=== PATIENT | male | born 1970 | race Caucasian/White ===

== ENCOUNTER 2020-08-04 16:10 | Outpatient (CLI) | payer BC, SELFPAY ==
--- NOTE | ~2020-08-04 | US_ITS ---
US abdomen complete EXAMINATION: US Abdomen Complete INDICATION: Abdominal pain PROCEDURE: Realtime High Resolution abdomen ultrasound. COMPARISON: No prior studies for comparison FINDINGS: Gallbladder within normal limits. No gallstones, pericholecystic fluid, gallbladder wall t hickening or biliary dilatation. Common bile duct measures 3 mm. Liver echotexture within normal limits without focal mass. Pancreas within normal limits. Pancreati c tail is obscured by bowel gas. Spleen contains calcified granulomas. Renal echotexture is within n ormal limits bilaterally without hydronephrosis, contour deforming mass or renal stone. Right kidney measures 11.2 cm. Left kidney measures 12.5 cm. Visualized aspects of the aorta and IVC are within normal limits. Portal vein is patent. No sonograph ic Valenzuela's sign indicated by the technologist. IMPRESSION: 1: Unremarkable abdominal ultrasound. Reviewed, dictated and finalized at location A. [employer]
== END 2020-08-04 16:11 | disposition home or self-care (01) ==
PROVIDERS: PCP Internal Medicine; Visit Provider Internal Medicine
DX: R10.9 Unspecified abdominal pain (principal)
CPT/HCPCS: 76700

== ENCOUNTER 2021-03-30 11:56 | Outpatient (CLI) | payer OTHER, SELFPAY ==
--- NOTE | ~2021-03-30 | CT_ITS ---
EXAMINATION: CT abdomen pelvis w con DATE: 03/30/2021 12:25 INDICATION: Right lower quadrant abdominal pain TECHNIQUE: Computed tomography (CT) of the abdomen and pelvis was performed with 100 cc Omnipaque 350 intravenous contrast. Automated exposure control and iterative reconstruction technique were employe d. Exam dose: 547.50 mGy-cm total exam DLP. COMPARISON: August 04, 2020 complete abdominal ultrasound examination, reported unremarkable FINDINGS: The lung bases are clear of infiltrate or consolidation. Heart size is normal. No pericardi al or pleural effusion. Small sliding hiatal hernia. The gallbladder appears unremarkable. No bile duct or pancreatic duct dilatation. Multiple splenic calcified granulomas. The liver, spleen, pancreas, and adrenal glands and kidneys ar e otherwise unremarkable. No urinary tract calculus or hydroureteronephrosis. Normal caliber of the abdominal aorta. No intraperitoneal or retroperitoneal or pelvic mass lesion or adenopathy or ascites. Normal appendix. Diverticulosis of the colon; no CT evidence of diverticulitis. No bowel obstruction, bowel wall thickening, pneumatosis or intraperitoneal free air. Prostate enlargement. Mild thickening of the urinary bladder wall. IMPRESSION: Normal appendix Diverticulosis of the colon; no CT evidence of diverticulitis Reviewed, dictated and finalized at Location A. Reviewed, dictated and finalized at location B.
== END 2021-03-30 11:57 | disposition home or self-care (01) ==
PROVIDERS: PCP Internal Medicine; Visit Provider Internal Medicine
DX: R10.31 Right lower quadrant pain (principal); K57.30 Diverticulosis of large intestine without perforation or abscess without bleeding
CPT/HCPCS: 74177; Q9967

== ENCOUNTER 2021-07-30 07:23 | Outpatient (CLI) | payer OTHER, SELFPAY ==
[2021-07-30 08:26] LABS: Basophils Absolute Auto 0.1 K/mm3 (0.0-0.1); Basophils Percent Auto 0.8 % (0.2-1.2); Eosinophils Absolute Auto 0.3 K/mm3 (0-0.3); Eosinophils Percent Auto 3.9 % (0-4.4); Hematocrit 47.5 % (42.0-52.0); Hemoglobin 16.3 g/dL (14.0-18.0); Immature Granulocyte Absolute 0.02 K/mm3 (0.00-0.031); Immature Granulocyte Percent A 0.3 % (0-0.5); Lymphocytes Absolute Auto 3.77 K/mm3 (0.9-3.2); Lymphocytes Percent Auto 47.4 % (18.3-44.2); Mean Corpuscular HGB Conc 34.3 g/dl (32-36); Mean Corpuscular Hemoglobin 30.5 pg (26-34); Mean Corpuscular Volume 88.8 fl (80-100); Mean Platelet Volume 9.6 fl (7.4-10.4); Monocytes Absolute Auto 0.6 K/mm3 (0.1-0.6); Monocytes Percent Auto 7.3 % (2.6-8.5); Neutrophils Absolute Auto 3.2 K/mm3 (1.3-6.7); Neutrophils Percent Auto 40.3 % (45.5-73.1); Platelet Count Result 300 k/mm3 (150-375); Red Blood Count 5.35 M/mm3 (4.6-6.20); Red Cell Distribution Width 12.4 % (11.5-14.5)
[2021-07-30 08:40] LABS: Alanine Aminotransferase 35 U/L (4-50); Albumin Level 4.9 g/dL (3.5-5.1); Alkaline Phosphatase 42 U/L (38-126); Anion Gap 5 mmol/L (8-16); Aspartate Amino Transferase 34 U/L (17-59); Bilirubin,Total 0.9 mg/dL (0.2-1.3); Blood Urea Nitrogen 11 mg/dL (9-20); Calcium 9.9 mg/dL (8.4-10.2); Carbon Dioxide 29 mmol/L (22-30); Chloride 105 mmol/L (98-107); Cholesterol 258 mg/dL (0-200); Estimated Glomerular Filt Rate > 60; Glucose 98 mg/dL (65-110); HDL Direct 71 mg/dL; Potassium 3.8 mmol/L (3.4-5.0); Sodium 139 mmol/L (137-145); Triglycerides 135 mg/dL (<150)
[2021-07-30 08:41] LABS: Add Urine Microscopic? NO; Appearance Urine Clear (Clear); Bilirubin Urine Negative (Negative); Blood Urine Negative (Negative); Color Urine Yellow (Yellow); Glucose Urine UA Negative (Negative); Ketones Urine Negative (Negative); Leukocyte Esterase Ur Negative LEU/UL (NEGATIVE); Nitrate Urine Negative (Negative); Protein Urine Negative (Negative); Specific Grav Ur 1.014 (1.001-1.035); Urobilinogen Urine Negative mg/dL (<2.0)
[2021-07-30 08:50] LABS: LDL Cholesterol Direct 138 mg/dL
[2021-07-30 09:11] LABS: Prostate Specific Antigen 0.5 ng/mL (< OR = 4.0)
[2021-07-30 09:26] LABS: Vitamin D 25 Hydroxy 25.6 ng/mL
== END 2021-07-30 07:24 | disposition home or self-care (01) ==
PROVIDERS: PCP Internal Medicine; Visit Provider Internal Medicine
DX: Z00.00 Encounter for general adult medical examination without abnormal findings (principal); E55.9 Vitamin D deficiency, unspecified; E78.5 Hyperlipidemia, unspecified; Z12.5 Encounter for screening for malignant neoplasm of prostate; E78.2 Mixed hyperlipidemia
CPT/HCPCS: 36415; 80053; 80061; 81003; 82306; 84153; 84443; 85025; G0103

== ENCOUNTER → 2021-09-04 07:16 | Outpatient (CLI) | payer OTHER, SELFPAY ==
--- NOTE | ~2021-09-04 | XR_ITS ---
EXAMINATION: XR sternum min 2V INDICATION: Other chest pain TECHNIQUE: Two views of the sternum are obtained. COMPARISON: 07/15/2013 FINDINGS: No fracture is identified. There is no definite osseous abnormality of the sternum or church e when compared to prior chest radiograph. The soft tissues are unremarkable. The visualized lungs ar e clear. IMPRESSION: 1. No definite osseous abnormality of the sternum although sensitivity of radiographs is low. Conside r CT if there is high clinical suspicion for osseous abnormality. Reviewed, dictated and finalized at location D. TORCH BRAZIER IMPRESSION: 1. No definite osseous abnormality of the sternum although sensitivity of radio graphs is low. Consider CT if there is high clinical suspicion for osseous abno rmality.
== END ==
PROVIDERS: PCP Internal Medicine; Visit Provider Internal Medicine
DX: R07.89 Other chest pain (principal)
CPT/HCPCS: 71120

== ENCOUNTER 2021-09-12 00:28 | Day surgery (SDC) | payer OTHER, SELFPAY ==
[2021-09-03 14:13] VITALS: BMI 27.9
[2021-09-12 06:54] VITALS: BP 142/91; PULSE 51; RESP 18; TEMP 36.5; O2SAT 100
[2021-09-12] MEDS: LACTATED RINGERS 1,000 ML 150 ML IV CONT (07:11)
--- NOTE | 2021-09-12 07:17 | P.PNAN_ITS ---
Anes - Initial Pre Proc Eval Procedure: Operation Date: 09/12/21 08:00 Proposed Procedures p Screening Colonoscopy - Sherif Mora MD Date/Time: 09/12/21 07:17 Surgeon: Sherif Mora MD Pre Op Diagnosis: neoplasm screening Patient Data Age: 51 Gender: M Height: 1.78 m Weight: 91.3 kg Last Vital Signs Temp 36.5 C 09/12/21 06:54 Pulse 51 L 09/12/21 06:54 Resp 18 09/12/21 06:54 BP 142/91 H 09/12/21 06:54 Pulse Ox 100 09/12/21 06:54 Allergies Allergy/AdvReac Type Severity Reaction Status Date / Time No Known Allergies Allergy Verified 09/12/21 06:53 Home Medications Medication Instructions Recorded Confirmed Type cholecalciferol (vitamin D3) 10 mcg PO DAILY 09/03/21 09/03/21 History Patient hx anesthesia problems: none Family hx anesthesia problems: none Results Review: All pre-operative results and documents have been reviewed as part of the pre-operative evaluation. [facility] Past Medical History Medical History (Updated 09/12/21 @ 07:23 by Nick Holm MD) Overweight TMJ (temporomandibular joint disorder) Vasovagal syncope Surgical History Surgical History (Updated 09/12/21 @ 07:23 by Nick Holm MD) H/O hernia repair Family History Family History Father Family history of chronic obstructive pulmonary disease, Onset Age: 61 Family history of mental disorder, Onset Age: 61 Depression, Onset Age: 61 Family history of alcoholism, Onset Age: 61 Family history of lung disease, Onset Age: 61 Mother Diabetes mellitus Family history of obesity Family history of mental disorder Patient's mother is in good health Grandparent Family history of cardiovascular disease Family history of malignant neoplasm Social History Social History Smoking status: Never smoker Alcohol intake: current Drinks per week: 14 Alcohol use details: beer and wine Substance use: unknown Substance use type: does not use Living arrangements: with family Additional living arrangements comments: Liliana, spouse Spiritual care concerns: No Anes - Eval Final PreProcedure Day of Procedure 09/12/21 07:17 Patient weight: overweight Heart: bradycardia Lungs: clear to auscultation Airway: Mallampati scale class II, special considerations (HR 56 on exam) poor opening and other (TMJ syndome, clicking and popping improved in recent years) Neurological: alert and oriented Last oral intake: >/= 8 hours ASA classification: II Emergent: no Anesthetic plan: proceed Anesthesia type and monitoring: general GIVS and standard monitoring Results Review: All pre-operative results and documents have been reviewed as part of the pre-operative evaluation. Informed Consent: The patient's anesthetic plan and its attendant risks and benefits were discussed with the patient/family/POA. Questions were solicited and answers provided to the satisfaction of the patient/family/POA.
--- NOTE | 2021-09-12 07:47 | PM.HPGS ---
History of Present Illness History of Present Illness Consent: Risks, benefits, and alternatives have been discussed and questions answered. Patient agrees to proceed with procedure. Chief complaint: neoplasm screening Narrative: Brett Avalos is a 51 year old male here for first screening colonoscopy Review of Systems Constitutional: Constitutional: Denies headache(s) and Denies weakness Eyes: Eyes: Denies blurry vision ENT: Reports Normal hearing present, Denies headache(s) and Denies neck pain Cardiovascular: Cardiovascular: Denies chest pain and Denies dyspnea Respiratory: Respiratory: Denies dyspnea Gastrointestinal: Gastrointestinal: Reports no additional gastrointestinal complaints Genitourinary: Genitourinary: Denies dysuria Musculoskeletal: Musculoskeletal: Denies neck pain Integumentary/Breasts: Skin/Breast: Denies dry skin Neurologic: Reports Normal hearing present, Denies headache(s) and Denies weakness Psychiatric: Psychiatric: Denies anxiety Endocrine: Endocrine: Denies change in body appearance Hematologic/Lymphatic: Hematologic/Lymphatic: Denies easy bleeding Allergic/Immunologic: Allergic/Immunologic: Denies urticaria PMF Past Medical History Medical History (Updated 09/12/21 @ 07:23 by Nick Holm MD) Overweight TMJ (temporomandibular joint disorder) Vasovagal syncope Surgical History Surgical History (Updated 09/12/21 @ 07:23 by Nick Holm MD) H/O hernia repair Family History Family History Father Family history of chronic obstructive pulmonary disease, Onset Age: 61 Family history of mental disorder, Onset Age: 61 Depression, Onset Age: 61 Family history of alcoholism, Onset Age: 61 Family history of lung disease, Onset Age: 61 Mother Diabetes mellitus Family history of obesity Family history of mental disorder Patient's mother is in good health Grandparent Family history of cardiovascular disease Family history of malignant neoplasm Social History Social History Smoking status: Never smoker Alcohol intake: current Drinks per week: 14 Alcohol use details: beer and wine Substance use: unknown Substance use type: does not use Living arrangements: with family Additional living arrangements comments: Liliana, spouse Spiritual care concerns: No Meds Home Medications and Allergies Home Medications Medication Instructions Recorded Confirmed Type cholecalciferol (vitamin D3) 10 mcg PO DAILY 09/03/21 09/03/21 History Allergies Allergy/AdvReac Type Severity Reaction Status Date / Time No Known Allergies Allergy Verified 09/12/21 06:53 Vital Signs Vital Signs - 24 hr 09/12/21 06:54 Temperature 97.7 F Pulse Rate 51 L Respiratory Rate 18 Blood Pressure 142/91 H Pulse Oximetry 100 Exam Const: General: comfortable and no acute distress HENMT: General nose exam: Normal nares present Eyes: General: appearance normal, both eyes and all related structures Neck: Neck: no JVD Resp: Auscultation: clear to auscultation bilaterally Cardio: Rate: regular rate Rhythm: regular rhythm GI: Inspection: non-distended GI Palp: Yes Soft to palpation Skin: General skin exam: normal color Neuro: General: gait normal Speech: normal speech Extrem: General: normal to inspection Psych: Mental Status: mental status grossly normal Assessment and Plan Assessment and plan (1) Encounter for screening colonoscopy: Code(s): Z12.11 - Encounter for screening for malignant neoplasm of colon Status: Acute Assessment and Plan: colonoscopy
[2021-09-12 08:16] VITALS: BP 108/68; PULSE 57; RESP 16; O2SAT 99
[2021-09-12 08:26] VITALS: BP 116/86; PULSE 55; RESP 24; O2SAT 100
[2021-09-12 08:36] VITALS: BP 122/92; PULSE 53; RESP 18; O2SAT 100
== END 2021-09-12 08:59 | disposition home or self-care (01) ==
PROVIDERS: PCP Internal Medicine; Visit Provider Internal Medicine Gastroenterology
PROC: 0DJD8ZZ Inspection of Lower Intestinal Tract, Via Natural or Artificial Opening Endoscopic (ICD-10-PCS; CPT 45378; principal; 2021-09-12 08:00)
DX: Z12.11 Encounter for screening for malignant neoplasm of colon (principal); K57.30 Diverticulosis of large intestine without perforation or abscess without bleeding; K64.8 Other hemorrhoids
CPT/HCPCS: 45378; J2001; J2704; J7120

== ENCOUNTER → 2021-10-15 08:21 | Outpatient (CLI) | payer OTHER, SELFPAY ==
--- NOTE | ~2021-10-15 | CT_ITS ---
EXAMINATION:CT diagnostic chest wo con DATE: 10/15/2021 08:44 INDICATION: Osseous abnormality of sternum. Lump on sternum. TECHNIQUE: Computed tomography (CT) of the chest was performed without intravenous contrast. Automate d exposure control and iterative reconstruction technique were employed. The dose-length product (DLP ) was 383.76 mGy-cm. COMPARISON: Chest CT 07/15/2013, sternotomy radiographs 09/04/2021 FINDINGS: The lungs demonstrate mild atelectasis. A calcified right lung nodule and calcified right h ilar and mediastinal lymph nodes are consistent with old granulomatous disease. No pleural effusion. The heart size is normal. No pericardial effusion. Calcifications in the spleen are consistent with o ld granulomatous disease. There is mild thoracic spondylosis. The sternum is normal. There is a promi nent costosternal junction on the left. IMPRESSION: 1. Normal sternum with prominent costosternal junction on the left that may correlate with the patien t's palpable area of concern. Reviewed, dictated and finalized at location B. IMPRESSION: 1. Normal sternum with prominent costosternal junction on the left that may cor relate with the patient's palpable area of concern.
== END ==
PROVIDERS: PCP Internal Medicine; Visit Provider Internal Medicine
DX: R07.89 Other chest pain (principal)
CPT/HCPCS: 71250

== ENCOUNTER 2023-01-05 20:28 | Emergency (ER) | payer OTHER, SELFPAY ==
[2023-01-05] VITALS (7 sets, daily range): BP systolic 118–147; BP diastolic 83–96; PULSE 58–74; RESP 15–20; TEMP 36.6; O2SAT 100
--- NOTE | ~2023-01-05 | XR_ITS ---
EXAMINATION: XR chest 1V portable Exam Date/Time: 01/05/2023 20:42 CDT HISTORY: syncope Comparison: 03/22/2018; CT chest 10/15/2021. RESULT: Lines, tubes, and devices: None. Lungs and pleura: Clear. Calcified right lower lung granuloma. Cardiomediastinal silhouette: Stable. Calcified right hilar nodes. Other: No acute osseous or upper abdominal finding. IMPRESSION: No acute cardiopulmonary process. Reviewed, dictated and finalized at location K.
--- NOTE | 2023-01-05 20:29 | ECG_ITS ---
Measurements Intervals [place] Rate: 54 P: 71 TX: 177 QRS: 26 QRSD: 113 T: 18 QT: 403 QTc: 383 Interpretive Statements SINUS BRADYCARDIA INTRAVENTRICULAR CONDUCTION DELAY BORDERLINE ECG NO PREVIOUS ECG AVAILABLE FOR COMPARISON Electronically Signed On 01-06-2023 6:51:02 CDT by Alexander Merchant D.O.
[2023-01-05 20:55] LABS: Basophils Absolute Auto 0.1 K/mm3 (0.0-0.1); Basophils Percent Auto 0.5 % (0.2-1.2); Eosinophils Absolute Auto 0.2 K/mm3 (0-0.3); Eosinophils Percent Auto 1.2 % (0-4.4); Hemoglobin 15.8 g/dL (14.0-18.0); Immature Granulocyte Absolute 0.06 K/mm3 (0.00-0.031); Immature Granulocyte Percent A 0.5 % (0-0.5); Lymphocytes Absolute Auto 4.22 K/mm3 (0.9-3.2); Mean Corpuscular HGB Conc 34.3 g/dl (32-36); Mean Corpuscular Hemoglobin 30.6 pg (26-34); Mean Platelet Volume 9.4 fl (7.4-10.4); Monocytes Absolute Auto 1.1 K/mm3 (0.1-0.6); Neutrophils Absolute Auto 7.6 K/mm3 (1.3-6.7); Neutrophils Percent Auto 57.8 % (45.5-73.1); Platelet Count Result 287 k/mm3 (150-375); Red Blood Count 5.17 M/mm3 (4.6-6.20); Red Cell Distribution Width 12.5 % (11.5-14.5); White Blood Count 13.2 K/mm3 (4.5-10.0)
[2023-01-05 21:07] LABS: Alanine Aminotransferase 27 U/L (6-50); Albumin Level 4.9 g/dL (3.5-5.1); Alkaline Phosphatase 36 U/L (38-126); Anion Gap 7 mmol/L (8-16); Aspartate Amino Transferase 38 U/L (17-59); Bilirubin,Total 0.7 mg/dL (0.2-1.3); Blood Urea Nitrogen 23 mg/dL (9-20); Calcium 10.4 mg/dL (8.4-10.2); Carbon Dioxide 26 mmol/L (22-30); Chloride 99 mmol/L (98-107); Estimated CRCL calculation 62 ml/min; Estimated Glomerular Filt Rate 58; Glucose 95 mg/dL (65-110); Magnesium 2.2 mg/dL (1.6-2.3); Potassium 4.1 mmol/L (3.4-5.0); Sodium 132 mmol/L (137-145)
[2023-01-05 21:10] LABS: Lactic Acid Reflex 1.6 mmol/L (0.7-2.0)
[2023-01-05 21:18] LABS: Troponin I < 0.012 ng/mL (0.000-0.034)
[2023-01-05 21:49] LABS: Appearance Urine Clear (Clear); Bilirubin Urine Negative (Negative); Blood Urine Negative (Negative); Color Urine Yellow (Yellow); Glucose Urine UA Negative (Negative); Ketones Urine Trace mg/dL (Negative); Leukocyte Esterase Ur Negative LEU/UL (Negative); Nitrate Urine Negative (Negative); Protein Urine Negative (Negative); Specific Grav Ur 1.011 (1.001-1.035); Urobilinogen Urine 0.2 mg/dL (<2.0); pH Urine 6.5 (5.0-9.0)
[2023-01-05 21:50] LABS: Add Urine Microscopic? NO
--- NOTE | 2023-01-05 22:08 | ED.GENADULT ---
HPI - General Adult General Chief complaint: Syncope Stated complaint: SYNCOPAL EPISODE History of Present Illness HPI narrative: Patient is a 52-year-old gentleman who presents the emergency department with chief complaint of syncope. Patient reports that he has had several episodes of vasovagal syncope and reports that today he had been out running had done some work in the yard and then was talking to a neighbor started to feel lightheaded and then had a brief episode of syncope. Patient states that afterwards he feels weak and rundown patient reported no seizure-like activity denies chest pain denies abdominal pain Related Data Home Medications Medication Instructions Recorded Confirmed cholecalciferol (vitamin D3) 10 10 mcg PO DAILY 09/03/21 09/03/21 mcg (400 unit) capsule Allergies Allergy/AdvReac Type Severity Reaction Status Date / Time No Known Allergies Allergy Verified 09/12/21 06:53 Review of Systems Review of Systems: A 10 system review of systems was completed on the patient and is negative except for what is stated in the HPI. Nursing and ancillary documentation was reviewed. PMFSH Past Medical History Medical History Overweight TMJ (temporomandibular joint disorder) Vasovagal syncope Surgical History Surgical History H/O hernia repair Family History Family History Father Family history of chronic obstructive pulmonary disease, Onset Age: 61 Family history of mental disorder, Onset Age: 61 Depression, Onset Age: 61 Family history of alcoholism, Onset Age: 61 Family history of lung disease, Onset Age: 61 Mother Diabetes mellitus Family history of obesity Family history of mental disorder Patient's mother is in good health Grandparent Family history of cardiovascular disease Family history of malignant neoplasm Social History Social History Smoking status: Never smoker Alcohol intake: current Drinks per week: 14 Alcohol use details: beer and wine Substance use: unknown Substance use type: does not use Living arrangements: with family Additional living arrangements comments: Liliana, spouse Spiritual care concerns: No Exam Narrative: GENERAL: Well-appearing, well-nourished, and in no acute distress. HEAD: Normocephalic, atraumatic. EYES: PERRLA and EOMI. ENT: Nares clear, no rhinorrhea or epistaxis. Mucous membranes moist. NECK: Supple. CHEST: Clear to auscultation. No respiratory distress. HEART: Regular rate and rhythm. No murmur heard. Normal peripheral pulses. ABDOMEN: Soft, nontender, nondistended, normal active bowel sounds. EXTREMITIES: Normal range of motion. No edema. SKIN: Warm, dry, no rash. NEURO: No focal deficits. Alert and oriented x3. PSYCH: Normal mood and affect. Course Vital Signs Vital signs: Vital Signs Temperature 36.6 C 01/05/23 20:26 Pulse Rate 60 01/05/23 20:26 Respiratory Rate 16 01/05/23 20:26 Blood Pressure 118/86 01/05/23 20:26 Pulse Oximetry 100 01/05/23 20:26 Oxygen Delivery Room Air 01/05/23 20:26 Temperature 36.6 C 01/05/23 20:26 Pulse Rate 71 01/05/23 23:28 Respiratory Rate 20 01/05/23 23:28 Blood Pressure 147/96 H 01/05/23 23:28 Pulse Oximetry 100 01/05/23 23:28 Oxygen Delivery Room Air 01/05/23 20:43 Medical Decision Making MDM Narrative Medical decision making narrative: Differential diagnosis includes vasovagal syncope, dehydration, orthostatic hypotension, arrhythmia, electrolyte abnormality, Laboratory studies were obtained on the patient which showed a CBC with a white count of 13.3 electrolytes showed a sodium of 132 BUN was 23 creatinine is 1.3 magnesium was 2.2 potassium was 4.
[2023-01-05] MEDS: SODIUM CHLORIDE 0.9% IV 1,000 ML 999 ML IV CONT (22:40)
[2023-01-06 00:03] VITALS: BP 119/79; PULSE 74; RESP 14; TEMP 36.4; O2SAT 99
== END 2023-01-06 00:04 | disposition home or self-care (01) ==
PROVIDERS: Emergency Provider Emergency Medicine
DX: R55 Syncope and collapse (principal); E66.3 Overweight; Z68.28 Body mass index [BMI] 28.0-28.9, adult; I45.9 Conduction disorder, unspecified; R00.1 Bradycardia, unspecified
CPT/HCPCS: 36415; 71045; 80053; 81003; 83605; 83735; 84484; 85025; 93005; 96360; 99284; 99285; J7030